=== PATIENT | female | born 1990 | race Caucasian/White ===

== ENCOUNTER 2018-01-01 08:43 | Emergency (ER) | payer OTHER ==
[~2018-01-01] VITALS: Ht 154.9 cm; Wt 56.8 kg
[2018-01-01] MEDS: SODIUM CHLORIDE 0.9% 1,000 ML IV ONE (09:25)
[2018-01-01] MEDS: KETOROLAC TROMETHAMINE 30 MG/ML VIAL IVP ONE (10:04)
[2018-01-01] MEDS: ACETAMINOPHEN 325 MG TABLET PO ONE (10:04)
[2018-01-01] MEDS: GuaiFENesin/D-METHORPHAN [SUGAR-FREE] 200-20MG/10 ML SYRUP UDCUP PO ONE (10:04)
[2018-01-01 10:17] LABS: INFLUENZA TYPE A POSITIVE FOR TYPE A (NEGATIVE); INFLUENZA TYPE B NEGATIVE FOR TYPE B (NEGATIVE)
[2018-01-01 10:25] VITALS: BP 100/57
[2018-01-01] MEDS: OSELTAMIVIR PHOSPHATE 75 MG CAPSULE PO ONE (10:40)
== END 2018-01-01 11:14 | disposition home or self-care (01) ==
LOC: EMS 08:44
DX: J18.9 Pneumonia, unspecified organism (principal); J11.1 Influenza due to unidentified influenza virus with other respiratory manifestations
CPT/HCPCS: 71046; 87804; 96361; 96374; 99285; J1885; J7030

== ENCOUNTER 2022-07-18 18:49 | Emergency (ER) | payer OTHER ==
[~2022-07-18] VITALS: Ht 154.9 cm; Wt 59.1 kg
[2022-07-18 19:18] VITALS: BP 145/89
== END 2022-07-19 01:58 | disposition left against medical advice (07) ==
LOC: EMS 18:49
DX: Z53.21 Procedure and treatment not carried out due to patient leaving prior to being seen by health care provider (principal)